=== PATIENT | female | born 1960 | race Caucasian/White ===

== ENCOUNTER 2018-10-03 21:53 | Emergency (ER) | payer OTHER ==
[~2018-10-03] VITALS: Ht 162.6 cm; Wt 95.3 kg
[~2018-10-03 21:53] MED LIST: DILTIAZEM 24HR120 MG; DILTIAZEM PO; NABUMETONE500 MG PO; PERCOCET 5/3251 TAB PO; PREVACID30 MG/BLIS PO
[2018-10-04] MEDS ORDERED: SYMBICORT 16010.2 GM IH (01:08)
[2018-10-04] MEDS ORDERED: ALBUTEROL2.5 MG/3 M IH (01:08)
[2018-10-04] MEDS ORDERED: SINGULAIR 10MG10 MG PO (01:08)
[2018-10-04] MEDS ORDERED: IRON1TAB4 PO (01:08)
[2018-10-04] MEDS ORDERED: ZYNCOF 20-400120 ML PO (01:08)
== END 2018-10-04 01:12 ==
LOC: ER 21:53
DX: B34.9 Viral infection, unspecified (principal); D64.89 Other specified anemias

== ENCOUNTER 2019-02-19 01:25 | Emergency (ER) | payer OTHER ==
[~2019-02-19] VITALS: Ht 157.5 cm; Wt 79.4 kg
[~2019-02-19 01:25] MED LIST changes: +ALBUTEROL2.5 MG/3 M IH; +IRON1TAB4 PO; +SINGULAIR 10MG10 MG PO; +SYMBICORT 16010.2 GM IH; +ZYNCOF 20-400120 ML PO
== END 2019-02-19 13:24 | disposition home or self-care (01) ==
LOC: ER 01:25 → CPU-OBS 01:27 → ER 01:27
DX: R07.89 Other chest pain (principal); R00.2 Palpitations
CPT/HCPCS: G0378; G0379; 93005

== ENCOUNTER → 2021-06-04 | Emergency (ER) | payer OTHER ==
[~2021-06-04] VITALS: Ht 162.6 cm; Wt 93.4 kg
[~2021-06-04] MED LIST changes: +PLAVIX75 MG; +TOPROL XL50 M1
== END | disposition left against medical advice (07) ==
LOC: ER 21:30
DX: R00.2 Palpitations (principal); R07.89 Other chest pain; I25.10 Atherosclerotic heart disease of native coronary artery without angina pectoris; Z53.21 Procedure and treatment not carried out due to patient leaving prior to being seen by health care provider